=== PATIENT | female | born 2000 | race African-American/Black ===

== ENCOUNTER 2022-10-05 16:32 | Emergency (ER) | payer MEDICAID, SELFPAY ==
[2022-10-05 16:35] VITALS: BP 165/116; PULSE 97; RESP 19; TEMP 36.8; O2SAT 97; BMI 27.6
--- NOTE | 2022-10-05 16:41 | EDS_ITS ---
HPI History of Present Illness Chief Complaint: Allergic Reaction Narrative Narrative: Patient presents with what she thinks is her throat closing in. This started just prior to arrival, she can still somewhat talk however she feels like there is a constriction. She has no rash, no nausea or vomiting. No recent fevers or chills. No history of this in the past. PFSH PFS Home Medications benzonatate 200 mg capsule 200 mg PO BID PRN cough #10 caps 10/05/22 [Rx Last Taken Unknown] Allergy/AdvReac Type Severity Reaction Status Date / Time oseltamivir [From Tamiflu] AdvReac Upset Verified 10/05/22 16:48 Stomach Social History Smoking Status: Current every day smoker tobacco type: e-cigarettes ROS ROS ED ROS Narrative Past medical history: Reviewed Medications: Reviewed Social history: Noncontributory Review of systems: All systems negative except as indicated General: No fever Eyes: No visual changes ENT: As in HPI Neck: As in HPI Cardiovascular: No chest pain Respiratory: Difficulty breathing Gastrointestinal: No abdominal pain, nausea vomiting or diarrhea Genitourinary: No dysuria Musculoskeletal: Denies myalgias no difficulty with ambulation Skin: No rash Neurological: No memory loss, confusion or any focal weakness Hematologic: No easy bleeding or easy bruising EXAM Physical Exam Narrative Exam Narrative: Physical exam General: Patient appears uncomfortable. Head: Normocephalic, Atraumatic Eyes: Conjunctiva not pale ENT: Moist mucous membranes, normal posterior pharyngeal area normal soft palate. Normal uvula. She sometimes has difficulty getting some words out but does have a normal voice when she talks Neck: Supple, Nontender, No lymphadenopathy, no masses no goiter. Cardiovascular: Regular tachycardia Respiratory: She has clear bilateral breath sounds. Abdomen: Soft, Nontender, Nondistended Back: Nontender, Normal Inspection. Negative for: CVA tenderness Extremities: Nontender, No edema Skin: Normal color, No rash Neurological: Alert, Normal Strength, Normal Sensation Const Vital Signs: 10/05/22 16:35 10/05/22 16:48 10/05/22 18:42 Temperature 98.2 F Temperature Source Temporal Pulse Rate 97 Respiratory Rate 19 H 18 Respiratory Effort Normal Non-Labored Respiratory Pattern Normal Blood Pressure 165/116 H 117/80 Blood Pressure Mean 132 92 Pulse Ox 97 98 Oxygen Delivery Method Room Air Room Air MDM MDM MDM Narrative Medical decision making narrative: Patient seems quite anxious, I did give her some Ativan and she is significantly improved she is speaking in full sentences. She now has quite a bit of pain in her throat. CT soft tissue is normal. I reevaluated her she is speaking in full sentences posterior oropharynx shows some slight erythema which may be early viral infection. She was observed for quite some time. She did have thyroid abnormality on the blood work, she needs her Synthroid increased, she will call her community center director tomorrow I gave her a copy of of the TSH. Lab Data Labs: Laboratory Results - last 24 hr 10/05/22 10/05/22 16:43 16:43 WBC 7.5 RBC 4.49 Hgb 13.7 Hct 41.1 MCV 91.5 MCH 30.5 MCHC 33.3 RDW Std Deviation 41.5 RDW Coeff of Valorie 12.6 Plt Count 338 MPV 9.3 Immature Gran % (Auto) 0.400 Neut % (Auto) 48.9 Lymph % (Auto) 39.3 Becker % (Auto) 10.4 H Eos % (Auto) 0.7 Baso % (Auto) 0.3 Absolute Neuts (auto) 3.7 Absolute Lymphs (auto) 2.95 Nucleated RBC % 0 Sodium 137 Potassium 3.5 Chloride 101 Carbon Dioxide 26.0 Anion Gap 10 BUN 10 Creatinine 0.97 Estim Creat Clear Calc 86.97 Est GFR (MDRD) Af Amer 91 Est GFR (MDRD) Non-Af 75 BUN/Creatinine Ratio 10.3 Glucose 96 Calcium 10.3 H Total Bilirubin 0.30 AST 33 ALT 86 H Alkaline Phosphatase 77 Total Protein 9.6 H Albumin 5.2 H Globulin 4.4 H Albumin/Globulin Ratio 1.2 TSH 18.10 H Radiography Diagnostic Testing: Clinical Impression(s) from Imaging Studies Soft Tissue Neck CT 10/05/22 16:46 IMPRESSION: 1. Mild enlargement of the right tonsil compared to the left but there are no inflammatory changes, fluid collections or adenopathy. 2. Reversal of the normal cervical lordosis which may be due to patient positioning or muscular strain. Electronically Signed: Grady Stewart MD at 17:40 EST , Chest X-Ray 10/05/22 17:06 IMPRESSION: No radiographic evidence of acute cardiopulmonary disease. Electronically Signed: Grady Stewart MD at 17:16 EST , Chest x-ray read by me as normal Discharge Plan Triage Chief Complaint: Allergic Reaction ED Provider: Ronni Mathews Dx/Rx/DC Orders Clinical Impression: Hypothyroidism, Pain in throat Instructions: Measuring Your Pain, When You Have a Sore Throat Prescriptions: New benzonatate 200 mg capsule 200 mg PO BID PRN (Reason: cough) Qty: 10 0RF Primary Care Provider: Care Physician,No Primary Referrals: Care Physician,No Primary [Primary Care Provider] - Disposition Disposition: Home, Self Care
[2022-10-05] MEDS: LORazepam 2 MG/ML Syringe 1 MG IV (16:45)
--- NOTE | 2022-10-05 16:46 | CT_ITS ---
EXAM: CT NECK WITH INTRAVENOUS CONTRAST CLINICAL INDICATION: neck pain TECHNIQUE: Helically acquired images were obtained of the neck with intravenous contrast. This CT exam was performed using one or more of the following dose reduction techniques: automated exposure control, adjustment of the mA and/or kV according to patient size, and/or use of iterative reconstruction technique. This report was created using [employer] report generation technology. CONTRAST: IV 75mL [id number] COMPARISON: None. FINDINGS: NASOPHARYNX: Unremarkable. SUPRAHYOID NECK: There is minimal asymmetry in the tonsillar tissue the right being slightly larger than the left. There are no obvious inflammatory changes or fluid collections. INFRAHYOID NECK: Unremarkable. The larynx, hypopharynx and supraglottis are unremarkable. SUBMANDIBULAR/PAROTID GLANDS: Unremarkable. Glands are normal in size. THYROID: Unremarkable. No enlarged or calcified nodules. BONES/JOINTS: There is reversal of the normal cervical lordosis which may be due to patient positioning or muscular strain. No acute fracture. SOFT TISSUES: Unremarkable. VASCULATURE: No acute findings. LYMPH NODES: There is no enlarged adenopathy identified. LUNG APICES: Unremarkable as visualized. CT/Soft Tissue Neck WITH Contrast IMPRESSION: 1. Mild enlargement of the right tonsil compared to the left but there are no inflammatory changes, fluid collections or adenopathy. 2. Reversal of the normal cervical lordosis which may be due to patient positioning or muscular strain. Electronically Signed: Grady Stewart MD at 17:40 [facility] ,
[2022-10-05 16:51] LABS: Absolute Lymphocyte Count 2.95 X10^3/uL (0.83-4.51); Absolute Neutrophil Count 3.7 X10^3/uL (2.0-7.7); Basophil# 0.02 X10^3/uL; Basophil% 0.3 % (0-1); Eosinophil# 0.05 X10^3/uL; Eosinophils% 0.7 % (0-5); Hematocrit 41.1 % (37-47); Hemoglobin 13.7 g/dL (12.0-15.0); Lymphocyte # 2.95 X10^3/ul (0.83-4.51); Lymphocyte % 39.3 % (19-41); Mean Corp Hgb Conc 33.3 g/dL (32-36); Mean Corpuscular Hgb 30.5 pg (27.0-32.0); Mean Corpuscular Volume 91.5 fL (81-99); Mean Platelet Vol. 9.3 fl (6.2-12.0); Monocyte# 0.78 X10^3/uL; Monocyte% 10.4 % (0-10); NRBC Flagged by Analyzer 0 % (0-5); Neutrophil # 3.67 X10^3/uL (2.7-7.7); Neutrophil % 48.9 % (47-70); Platelet Count 338 K/mm3 (150-450); RBC Distribution Width CV 12.6 % (11.6-14.6); RBC Distribution Width SD 41.5 fl (35.1-43.9); Red Blood Count 4.49 M/mm3 (4.2-5.4); White Blood Count 7.5 K/mm3 (4.4-11.0)
--- NOTE | 2022-10-05 17:06 | RAD_ITS ---
EXAM: XR CHEST, 1 VIEW CLINICAL INDICATION: sob TECHNIQUE: Frontal view of the chest. This report was created using [employer] report generation technology. COMPARISON: None. FINDINGS: LUNGS AND PLEURAL SPACES: Unremarkable. No consolidation or edema. No pneumothorax. No effusion. HEART: Unremarkable. Cardiac silhouette not enlarged. MEDIASTINUM: Central airways and mediastinal contour are unremarkable. BONES/JOINTS: Unremarkable. SOFT TISSUES: Unremarkable. RAD/Chest 1 View (Portable) IMPRESSION: No radiographic evidence of acute cardiopulmonary disease. Electronically Signed: Grady Stewart MD at 17:16 EST ,
[2022-10-05 17:31] LABS: ALB/GLOB Ratio 1.2 RATIO (0.9-2.4); AST(SGOT) 33 U/L (15-37); Alanine Aminotransfer ALT/SGPT 86 U/L (13-56); Albumin, Serum 5.2 g/dL (3.2-5.0); Alkaline Phosphatase 77 U/L (45-117); Anion Gap 10 (5-15); BUN 10 mg/dL (7-18); BUN/Creat Ratio 10.3 RATIO (10-20); Calcium,Total 10.3 mg/dL (8.5-10.1); Chloride 101 mmol/L (98-107); Creatinine, Serum 0.97 mg/dL (0.55-1.02); EST Glomerular Filtration Rate 75 mL/min (>60); Est Glom Filt Rate - Afr Amer 91 mL/min (>60); Estimated Creatinine Clearance 86.97 ml/min; Globulin 4.4 g/dL (2.2-4.2); Glucose 96 mg/dL (74-106); Potassium 3.5 mmol/L (3.5-5.1); Protein, Total 9.6 g/dL (6.4-8.2); Sodium Level 137 mmol/L (136-145)
[2022-10-05 18:42] VITALS: BP 117/80; RESP 18; O2SAT 98
--- NOTE | 2022-10-05 19:03 | CM.ED ---
SW Note Referral Source: Case Find Referral Reason: No Primary Care Physician (PCP) SW reviewed chart and noted that patient has no PCP. SW provided patient with list of [facility] and [facility] Physician List for reference. SW also provided patient with handout ?Where to go When?. No other issues or concerns voiced at this time. SW remains available for any additional needs. Plan: Provided patient with PCP information Renu BERMUDEZ
[2022-10-05 20:02] VITALS: O2SAT 99
== END 2022-10-05 20:10 | disposition home or self-care (01) ==
PROVIDERS: Emergency Provider Emergency Medicine; Visit Provider Emergency Medicine
DX: E03.9 Hypothyroidism, unspecified (principal); R07.0 Pain in throat; F17.290 Nicotine dependence, other tobacco product, uncomplicated
CPT/HCPCS: 70491; 71045; 80053; 84443; 85025; 96374; 99283; Q9967